=== PATIENT | female | born 1955 | race Caucasian/White ===

== ENCOUNTER 2023-03-29 15:20 | Emergency (ER) | payer OTHER ==
[~2023-03-29] VITALS: Ht 165.1 cm; Wt 81.6 kg
[2023-03-29 15:20] VITALS: BP_SYST 134; PULSE 72; RESP 18; TEMP 97.2; O2SAT 99
[2023-03-29] MEDS ORDERED: BACITRACIN 1 GM OINT TP ONE ×2 (15:25→19:12)
[2023-03-29] MEDS: ACETAMINOPHEN 325 MG TABLET PO ONE (15:53)
[2023-03-29] MEDS ORDERED: METH-634 PO (17:29)
[2023-03-29] MEDS ORDERED: IBUP-1969 PO (17:29)
[2023-03-29] MEDS: KETOROLAC TROMETHAMINE 30 MG VIAL IM ONE (17:39)
[2023-03-29 19:20] VITALS: BP_SYST 127; PULSE 75; RESP 18; TEMP 97.4; O2SAT 97
== END 2023-03-29 19:11 | disposition home or self-care (01) ==
LOC: SED 15:20
DX: S16.1XXA Strain of muscle, fascia and tendon at neck level, initial encounter (principal); S80.02XA Contusion of left knee, initial encounter; S50.02XA Contusion of left elbow, initial encounter; W01.0XXA Fall on same level from slipping, tripping and stumbling without subsequent striking against object, initial encounter; Y93.89 Activity, other specified; Y92.89 Other specified places as the place of occurrence of the external cause; Y99.8 Other external cause status
CPT/HCPCS: 99285; 72125; 73080; 73564; 76376; 96372; J1885